=== PATIENT | male | born 1965 | race Two or more races ===

== ENCOUNTER 2019-07-12 10:57 | Emergency (ER) | payer OTHER ==
[~2019-07-12] VITALS: Ht 177.8 cm; Wt 108.9 kg
[2019-07-12] MEDS ORDERED: AVAPRO300 MG PO (11:24)
[2019-07-12] MEDS ORDERED: NORVASC5 MG PO (11:24)
[2019-07-12] MEDS ORDERED: MUCINEX DM ER1 EAC1 PO (14:55)
[2019-07-12] MEDS ORDERED: IBUPROFEN600 MG PO (14:55)
[2019-07-12] MEDS ORDERED: TESSALON PERLE100 M1 PO (14:55)
[2019-07-12] MEDS ORDERED: ZITHROMAX500 MG PO (14:55)
== END 2019-07-12 15:08 | disposition home or self-care (01) ==
LOC: ER 10:57
DX: J06.9 Acute upper respiratory infection, unspecified (principal); B96.0 Mycoplasma pneumoniae [M. pneumoniae] as the cause of diseases classified elsewhere

== ENCOUNTER 2019-07-30 15:38 | Emergency (ER) | payer OTHER ==
[~2019-07-30] VITALS: Ht 177.8 cm; Wt 105.7 kg
[~2019-07-30 15:38] MED LIST: AVAPRO300 MG PO; IBUPROFEN600 MG PO; MUCINEX DM ER1 EAC1 PO; NORVASC5 MG PO; TESSALON PERLE100 M1 PO; ZITHROMAX500 MG PO
== END 2019-07-30 20:11 | disposition home or self-care (01) ==
LOC: ER 15:38
DX: B34.9 Viral infection, unspecified (principal)

== ENCOUNTER 2019-08-23 07:12 | Outpatient (CLI) | payer OTHER | END 2019-08-23 07:50 | disposition home or self-care (01) | LOC: LAB 07:12 | DX: I10 Essential (primary) hypertension (principal); E03.8 Other specified hypothyroidism; E78.2 Mixed hyperlipidemia; N39.0 Urinary tract infection, site not specified ==

== ENCOUNTER → 2019-08-23 | Outpatient (CLI) | payer OTHER | END | disposition home or self-care (01) | LOC: SONOGRAMA 08:23 | DX: R10.84 Generalized abdominal pain (principal) ==

== ENCOUNTER 2019-08-24 18:40 | Outpatient (CLI) | payer OTHER | END 2019-08-24 19:00 | disposition home or self-care (01) | LOC: LAB 18:40 | DX: I10 Essential (primary) hypertension (principal); E11.9 Type 2 diabetes mellitus without complications; E03.8 Other specified hypothyroidism; E78.2 Mixed hyperlipidemia; N39.0 Urinary tract infection, site not specified; N41.0 Acute prostatitis ==

== ENCOUNTER 2019-09-24 09:02 | Outpatient (CLI) | payer OTHER ==
[~2019-09-24] VITALS: Ht 177.8 cm; Wt 104.3 kg
== END 2019-09-24 12:46 | disposition home or self-care (01) ==
LOC: OFIC 805 09:02
PROVIDERS: ATTEND Otolaryngology
DX: B34.8 Other viral infections of unspecified site (principal); J06.9 Acute upper respiratory infection, unspecified; B96.0 Mycoplasma pneumoniae [M. pneumoniae] as the cause of diseases classified elsewhere

== ENCOUNTER 2019-10-08 08:40 | Outpatient (CLI) | payer OTHER ==
[2019-10-08] MEDS ORDERED: PRILOSEC OTC20 MG PO (15:04)
[2019-10-08] MEDS ORDERED: PEPCID AC20 MG PO (15:04)
[2019-10-08] MEDS ORDERED: SINGULAIR10 MG PO (15:05)
[2019-10-08] MEDS ORDERED: ZYRTEC10 M3 PO (15:05)
[2019-10-08] MEDS ORDERED: FLONASE16 GM NASAL (15:06)
== END 2019-10-08 14:08 | disposition home or self-care (01) ==
LOC: OFIC 805 08:40
PROVIDERS: ATTEND Otolaryngology
DX: J30.89 Other allergic rhinitis (principal); K21.9 Gastro-esophageal reflux disease without esophagitis

== ENCOUNTER 2019-11-26 10:06 | Outpatient (CLI) | payer OTHER ==
[~2019-11-26 10:06] MED LIST changes: +FLONASE16 GM NASAL; +PEPCID AC20 MG PO; +PRILOSEC OTC20 MG PO; +SINGULAIR10 MG PO; +ZYRTEC10 M3 PO
== END 2019-11-26 13:52 | disposition home or self-care (01) ==
LOC: LAB 10:06
DX: J11.1 Influenza due to unidentified influenza virus with other respiratory manifestations (principal); Z20.828 Contact with and (suspected) exposure to other viral communicable diseases; R07.0 Pain in throat; Z11.59 Encounter for screening for other viral diseases

== ENCOUNTER 2020-05-15 14:50 | Outpatient (CLI) | payer OTHER | END 2020-05-15 16:18 | disposition home or self-care (01) | LOC: SONOGRAMA 14:50 | PROVIDERS: ATTEND Internal Medicine Cardiovascular Disease | DX: N64.59 Other signs and symptoms in breast (principal) ==

== ENCOUNTER 2021-01-05 09:17 | Outpatient (CLI) | payer OTHER | END 2021-01-05 17:00 | disposition home or self-care (01) | LOC: PPH VACUNA 09:17 | PROVIDERS: ATTEND Emergency Medicine Pediatric Emergency Medicine | DX: Z23 Encounter for immunization (principal) ==